=== PATIENT | female | born 1965 | race Two or more races ===

== ENCOUNTER 2024-05-15 14:31 | Inpatient (IN) | payer OTHER, MEDICAID ==
[~2024-05-15] VITALS: Ht 160 cm; Wt 66.4 kg
[2024-05-15 15:20] VITALS: PULSE 100
[2024-05-15] MEDS: SODIUM CHLORIDE 0.9% 1,000 ML IV ONE (15:36)
[2024-05-15 16:08] LABS: Basophils # (auto) 0 10 ^3/uL (0-0.2); Basophils % (auto) 0.4 % (0.0-2.0); Eosinophils # (auto) 0.3 10 ^3/uL (0-0.8); Eosinophils % (auto) 1.9 % (0.0-7.0); Hematocrit 27.4 % (36.0-46.0); Hemoglobin 8.5 g/dL (12.2-16.2); Lymphocytes # (auto) 1.6 10 ^3/uL (0.4-5.4); Lymphocytes % (auto) 12.6 % (10.0-50.0); Mean Corpuscular Hemoglobin 28.3 pg (28.0-32.0); Mean Corpuscular Hgb Conc. 31.1 g/dL (32.0-36.0); Mean Corpuscular Volume 90.9 fL (80.0-100.0); Monocytes # (auto) 0.8 10 ^3/uL (0-1.3); Monocytes % (auto) 5.9 % (0.0-12.0); Neutrophils # (auto) 10.3 10 ^3/uL (1.6-8.6); Neutrophils % (auto) 79.2 % (37.0-80.0); Nucleated Red Blood Cells % 0.1 %; Red Blood Cells 3.01 10^6/uL (4.0-5.20); Red Cell Distribution Width 14.2 % (11.8-14.3)
[2024-05-15 16:41] LABS: Alanine Aminotransferase 13 U/L (7-40); Albumin 3.4 g/dL (3.2-4.8); Alkaline Phosphatase 115 U/L (46-116); Anion Gap 10 (5-15); Aspartate Aminotransferase 19 U/L (13-40); BUN/Creatinine Ratio 40.6 (10.0-20.0); Blood Urea Nitrogen 78 mg/dL (9-23); Calcium 8.5 mg/dL (8.7-10.4); Carbon Dioxide 25 mmol/L (20-30); Chloride 109 mmol/L (98-107); Glucose 111 mg/dL (74-106); Potassium 4.1 mmol/L (3.5-5.1); Sodium 144 mmol/L (136-145)
[2024-05-15 16:42] LABS: Bilirubin, Total 0.2 mg/dL (0.2-1.0); Total Protein 5.2 g/dL (5.7-8.2)
[2024-05-15] MEDS ORDERED: NITROGLYCERIN 0.4 MG SL TAB SL PRN ×2 (18:00→18:15)
[2024-05-15] MEDS ORDERED: MORPHINE SULFATE INJ 2 MG/ml SYRG IV PRN ×3 (18:00→18:15)
[2024-05-15] MEDS ORDERED: ONDANSETRON HCL 4 MG/2 ML VIAL IV PRN (18:15)
[2024-05-15] MEDS ORDERED: DOCUSATE SOD 100 MG CAP PO PRN (18:15)
[2024-05-15 18:35] VITALS: BP 132/76; PULSE 105; RESP 18; TEMP 98.1; O2SAT 100
[2024-05-15 19:17] VITALS: PULSE 105; RESP 18; O2SAT 100
[2024-05-15] MEDS: SODIUM CHLORIDE 0.9% 1,000 ML IV SCH (20:25)
[2024-05-15] MEDS: PANTOPRAZOLE 40 MG/10 ML VIAL INJ IV ONE (20:25)
[2024-05-15] MEDS: cefTRIAXone 1GM/50ML D5W 50 ML IV ONE (20:26)
[2024-05-15 21:00] VITALS: BP 118/70; PULSE 104; RESP 18; TEMP 98.5; O2SAT 99
[2024-05-15] MEDS: PANTOPRAZOLE 40 MG/10 ML VIAL INJ IV SCH (21:28)
[2024-05-15 22:22] VITALS: BP 117/75; PULSE 114; RESP 18; TEMP 97.8
[2024-05-15 22:40] VITALS: BP 140/72; PULSE 103; RESP 18; TEMP 98.4
[2024-05-15] MEDS ORDERED: ALBUAER3 IN (23:34)
[2024-05-15] MEDS ORDERED: ACET325T82 PO (23:34)
[2024-05-15] MEDS ORDERED: DOCU-94 PO (23:50)
[2024-05-15] MEDS ORDERED: CYAN100069 SL (23:50)
[2024-05-15] MEDS ORDERED: METO25TA93 PO (23:50)
[2024-05-15] MEDS ORDERED: LEVO137T3 PO (23:50)
[2024-05-15] MEDS ORDERED: VERA120T92 PO (23:50)
[2024-05-15] MEDS ORDERED: ALEN70TA74 PO (23:50)
[2024-05-15] MEDS ORDERED: ATOR10TA52 PO (23:50)
[2024-05-15] MEDS ORDERED: OXCA600T3 PO (23:50)
[2024-05-15] MEDS ORDERED: BENA20TA12 PO (23:50)
[2024-05-15] MEDS ORDERED: LORA-1121 PO (23:50)
[2024-05-15] MEDS ORDERED: BUPR-133 PO ×2 (23:50)
[2024-05-15] MEDS ORDERED: TRAM50TA2 PO (23:50)
[2024-05-16] VITALS (8 sets, daily range): BP systolic 107–150; BP diastolic 43–86; PULSE 78–98; RESP 15–18; TEMP 97.6–99.3; O2SAT 95–99
[2024-05-16 04:16] LABS: Basophils # (auto) 0.1 10 ^3/uL (0-0.2); Basophils % (auto) 0.9 % (0.0-2.0); Eosinophils # (auto) 0.2 10 ^3/uL (0-0.8); Eosinophils % (auto) 1.3 % (0.0-7.0); Hematocrit 26.9 % (36.0-46.0); Hemoglobin 8.9 g/dL (12.2-16.2); Lymphocytes # (auto) 2.9 10 ^3/uL (0.4-5.4); Lymphocytes % (auto) 25.3 % (10.0-50.0); Mean Corpuscular Hgb Conc. 33.1 g/dL (32.0-36.0); Mean Corpuscular Volume 87.4 fL (80.0-100.0); Monocytes # (auto) 0.7 10 ^3/uL (0-1.3); Monocytes % (auto) 6.3 % (0.0-12.0); Neutrophils # (auto) 7.6 10 ^3/uL (1.6-8.6); Neutrophils % (auto) 66.2 % (37.0-80.0); Red Blood Cells 3.08 10^6/uL (4.0-5.20); Red Cell Distribution Width 13.8 % (11.8-14.3); White Blood Cell 11.5 10^3/uL (4.4-10.8)
[2024-05-16] MEDS: LORazepam 2MG/ML-1ML VIAL IV PRN (04:18)
[2024-05-16 04:33] LABS: Alanine Aminotransferase 15 U/L (7-40); Albumin 3.5 g/dL (3.2-4.8); Alkaline Phosphatase 104 U/L (46-116); Anion Gap 8 (5-15); Aspartate Aminotransferase 9 U/L (13-40); BUN/Creatinine Ratio 33.7 (10.0-20.0); Bilirubin, Total 0.3 mg/dL (0.2-1.0); Calcium 8.9 mg/dL (8.7-10.4); Carbon Dioxide 24 mmol/L (20-30); Chloride 113 mmol/L (98-107); Glucose 90 mg/dL (74-106); Potassium 4.3 mmol/L (3.5-5.1); Sodium 145 mmol/L (136-145); Total Protein 5.6 g/dL (5.7-8.2)
[2024-05-16 04:35] LABS: Blood Urea Nitrogen 61 mg/dL (9-23)
[2024-05-16 06:52] LABS: Hematocrit 25.4 % (36.0-46.0); Hemoglobin 8.6 g/dL (12.2-16.2)
[2024-05-16] MEDS: cefTRIAXone 1GM/50ML D5W 50 ML IV SCH (09:13)
[2024-05-16 12:19] LABS: Hematocrit 23.5 % (36.0-46.0); Hemoglobin 7.9 g/dL (12.2-16.2)
[2024-05-16 19:30] LABS: Hematocrit 23.6 % (36.0-46.0); Hemoglobin 7.9 g/dL (12.2-16.2)
[2024-05-17] VITALS (10 sets, daily range): BP systolic 121–164; BP diastolic 70–85; PULSE 66–86; RESP 11–18; TEMP 97.2–98.8; O2SAT 96–99
[2024-05-17 09:06] LABS: INR 1.02 (0.9-1.15); Prothrombin Time 10.8 sec (9.3-11.8)
[2024-05-17 10:04] LABS: Chloride 116 mmol/L (98-107); Sodium 147 mmol/L (136-145)
[2024-05-17 10:05] LABS: Anion Gap 13 (5-15); Carbon Dioxide 18 mmol/L (20-30)
[2024-05-17 10:06] LABS: Calcium 8.7 mg/dL (8.7-10.4)
[2024-05-17 10:10] LABS: BUN/Creatinine Ratio 25.3 (10.0-20.0); Glucose 72 mg/dL (74-106)
[2024-05-17 10:11] LABS: Blood Urea Nitrogen 39 mg/dL (9-23)
[2024-05-17] MEDS: LIDOCAINE W/ EPINEPHRINE 1% 20ML VIAL ONE (14:19)
[2024-05-17] MEDS: D5W/SOD CHL 0.45% 1,000 ML IV SCH (15:45)
[2024-05-17] MEDS ORDERED: MIDAZOLAM HCL 2MG/2ML 2ml VIAL (1mg/ml) ONE (16:56)
[2024-05-17] MEDS ORDERED: PROPOFOL 10 MG/ML 20 ML IV ONE (17:39)
[2024-05-17] MEDS: SUCRALFATE 1 GM/10 ML ORAL SUSP PO SCH (22:02)
[2024-05-18 01:00] VITALS: BP 130/86; PULSE 80; RESP 20; TEMP 98.1; O2SAT 94
[2024-05-18 05:00] VITALS: BP 126/73; PULSE 65; RESP 20; TEMP 97.8; O2SAT 96
[2024-05-18] MEDS: buPROPion HCL 75 MG TAB PO ONE (05:19)
[2024-05-18] MEDS: PANTOPRAZOLE 40 MG TAB PO SCH (05:19)
[2024-05-18 07:31] LABS: Calcium 9.4 mg/dL (8.7-10.4); Chloride 112 mmol/L (98-107); Potassium 3.8 mmol/L (3.5-5.1); Sodium 142 mmol/L (136-145)
[2024-05-18 07:32] LABS: Anion Gap 8 (5-15); Carbon Dioxide 22 mmol/L (20-30)
[2024-05-18 07:37] LABS: Glucose 90 mg/dL (74-106)
[2024-05-18 07:38] LABS: BUN/Creatinine Ratio 18.3 (10.0-20.0)
[2024-05-18 07:45] LABS: Blood Urea Nitrogen 28 mg/dL (9-23)
[2024-05-18] MEDS ORDERED: ACETAMINOPHEN 325 MG TAB PO PRN (07:45)
[2024-05-18 07:46] LABS: Basophils # (auto) 0.1 10 ^3/uL (0-0.2); Eosinophils # (auto) 0.3 10 ^3/uL (0-0.8); Hemoglobin 8.4 g/dL (12.2-16.2); Monocytes # (auto) 0.6 10 ^3/uL (0-1.3); Neutrophils # (auto) 7.8 10 ^3/uL (1.6-8.6); Red Cell Distribution Width 14.1 % (11.8-14.3)
[2024-05-18 07:49] LABS: Basophils % (auto) 0.8 % (0.0-2.0); Eosinophils % (auto) 3.1 % (0.0-7.0); Hematocrit 24.7 % (36.0-46.0); Lymphocytes # (auto) 2.5 10 ^3/uL (0.4-5.4); Mean Corpuscular Hemoglobin 30.5 pg (28.0-32.0); Mean Corpuscular Volume 89.7 fL (80.0-100.0); Monocytes % (auto) 5.2 % (0.0-12.0); Neutrophils % (auto) 68.9 % (37.0-80.0); Nucleated Red Blood Cells % 0.2 %; Red Blood Cells 2.76 10^6/uL (4.0-5.20); White Blood Cell 11.3 10^3/uL (4.4-10.8)
[2024-05-18 08:00] VITALS: PULSE 77; O2SAT 96
[2024-05-18 09:00] VITALS: BP 184/108; PULSE 82; RESP 18; TEMP 98.4; O2SAT 99
[2024-05-18] MEDS: DOCUSATE SOD 100 MG CAP PO SCH (09:37)
[2024-05-18] MEDS: VERAPAMIL HCL 120 mg ER tab PO SCH (09:37)
[2024-05-18 09:45] LABS: Hepatitis B Surface Antigen Negative (Negative)
[2024-05-18] MEDS ORDERED: ALBUTEROL SULF HFA 90MCG INH 200DOSE IN SCH (10:00)
[2024-05-18 10:06] LABS: Hepatitis C Antibody Negative (Negative)
[2024-05-18] MEDS ORDERED: SUCR1TAB31 PO (11:41)
[2024-05-18] MEDS ORDERED: PANT40TA2 PO (11:41)
[2024-05-18] MEDS ORDERED: SUCR1SUS26 PO (12:31)
[2024-05-18 13:00] VITALS: BP 132/77; PULSE 64; RESP 18; TEMP 98; O2SAT 94
[2024-05-18 14:39] VITALS: BP 142/84; PULSE 85; RESP 20; TEMP 98.3; O2SAT 98
[2024-05-18] MEDS ORDERED: buPROPion HCL 100 MG TAB PO SCH (22:00)
[2024-05-18] MEDS ORDERED: ATORVASTATIN 20 MG TAB PO SCH (22:00)
[2024-05-18] MEDS ORDERED: OXcarbazepine 300 MG TAB PO SCH (22:00)
[2024-05-19] MEDS ORDERED: HYDROCHLOROTHIAZIDE PO SCH (10:00)
[2024-05-19] MEDS ORDERED: ALENDRONATE SODIUM 70 MG PO SCH (10:00)
[2024-05-19] MEDS ORDERED: LEVOTHYROXINE SODIUM 112 MCG TAB PO SCH (10:00)
[2024-05-19] MEDS ORDERED: BENAZEPRIL PO SCH (10:00)
[2024-05-19] MEDS ORDERED: METOPROLOL SUCCINATE XL 50 MG TAB PO SCH (10:00)
[2024-05-19] MEDS ORDERED: LEVOTHYROXINE SODIUM 25 MCG TAB PO SCH (10:00)
[2024-05-19] MEDS ORDERED: ATORVASTATIN 20 MG TAB PO SCH (10:00)
== END 2024-05-18 16:00 | disposition home or self-care (01) | DRG 377 ==
LOC: EDBD 14:31 → ER 14:31 → OVERFLOW 18:14 → CENTRAL 18:48
PROVIDERS: ADMIT Nurse Practitioner Family; ATTEND Internal Medicine
PROC: 30233N1 Transfusion of Nonautologous Red Blood Cells into Peripheral Vein, Percutaneous Approach (ICD-10-PCS; 2024-05-15)
PROC: 0DB68ZX Excision of Stomach, Via Natural or Artificial Opening Endoscopic, Diagnostic (ICD-10-PCS; principal; 2024-05-17 16:50)
DX: K28.4 Chronic or unspecified gastrojejunal ulcer with hemorrhage (principal); N17.0 Acute kidney failure with tubular necrosis; D62 Acute posthemorrhagic anemia; E87.0 Hyperosmolality and hypernatremia; I12.9 Hypertensive chronic kidney disease with stage 1 through stage 4 chronic kidney disease, or unspecified chronic kidney disease; D72.829 Elevated white blood cell count, unspecified; E11.22 Type 2 diabetes mellitus with diabetic chronic kidney disease; E11.65 Type 2 diabetes mellitus with hyperglycemia; E78.5 Hyperlipidemia, unspecified; F31.9 Bipolar disorder, unspecified; N18.32 Chronic kidney disease, stage 3b; F50.9 Eating disorder, unspecified; Z90.5 Acquired absence of kidney; Z91.030 Bee allergy status; Z88.0 Allergy status to penicillin; Z91.09 Other allergy status, other than to drugs and biological substances; Z79.899 Other long term (current) drug therapy; Z81.8 Family history of other mental and behavioral disorders; Z82.49 Family history of ischemic heart disease and other diseases of the circulatory system; Z85.528 Personal history of other malignant neoplasm of kidney; Z86.59 Personal history of other mental and behavioral disorders; Z98.84 Bariatric surgery status
CPT/HCPCS: 36415; 74176; 80048; 80053; 82607; 83605; 84484; 85014; 85018; 85025; 85610; 86803; 86850; 86900; 86901; 86920; 87340; 93005; 96360; G0378; J2250; J2470; J2704

== ENCOUNTER 2024-07-21 15:58 | Emergency (ER) | payer OTHER, MEDICAID ==
[~2024-07-21] VITALS: Ht 160 cm; Wt 62.9 kg
[~2024-07-21 15:58] MED LIST: ACET325T82 PO; ALBUAER3 IN; ALEN70TA74 PO; ATOR10TA52 PO; BENA20TA12 PO; BUPR-133 PO; CYAN100069 SL; DOCU-94 PO; LEVO137T3 PO; LORA-1121 PO; METO25TA93 PO; OXCA600T3 PO; PANT40TA2 PO; SUCR1SUS26 PO; TRAM50TA2 PO; VERA120T92 PO
[2024-07-21 17:54] LABS: Basophils # (auto) 0.1 10 ^3/uL (0-0.2); Basophils % (auto) 0.9 % (0.0-2.0); Eosinophils # (auto) 0.1 10 ^3/uL (0-0.8); Hematocrit 32.4 % (36.0-46.0); Hemoglobin 10.7 g/dL (12.2-16.2); Lymphocytes # (auto) 1.2 10 ^3/uL (0.4-5.4); Lymphocytes % (auto) 11.8 % (10.0-50.0); Mean Corpuscular Hemoglobin 29.3 pg (28.0-32.0); Mean Corpuscular Volume 88.9 fL (80.0-100.0); Monocytes # (auto) 0.7 10 ^3/uL (0-1.3); Monocytes % (auto) 7.2 % (0.0-12.0); Neutrophils # (auto) 7.8 10 ^3/uL (1.6-8.6); Neutrophils % (auto) 79.1 % (37.0-80.0); Platelet Count (auto) 268 10^3/uL (140-450); Red Blood Cells 3.65 10^6/uL (4.0-5.20); Red Cell Distribution Width 15.4 % (11.8-14.3); White Blood Cell 9.8 10^3/uL (4.4-10.8)
[2024-07-21 18:08] LABS: Alanine Aminotransferase 14 U/L (7-40); Albumin 4.2 g/dL (3.2-4.8); Alkaline Phosphatase 191 U/L (46-116); Anion Gap 10 (5-15); Aspartate Aminotransferase 10 U/L (13-40); BUN/Creatinine Ratio 18.6 (10.0-20.0); Bilirubin, Total 0.2 mg/dL (0.2-1.0); Blood Urea Nitrogen 39 mg/dL (9-23); Calcium 9.3 mg/dL (8.7-10.4); Carbon Dioxide 26 mmol/L (20-30); Chloride 106 mmol/L (98-107); Glucose 81 mg/dL (74-106); Potassium 3.8 mmol/L (3.5-5.1); Sodium 142 mmol/L (136-145); Total Protein 7.1 g/dL (5.7-8.2)
[2024-07-21] MEDS ORDERED: BACDST PO (19:59)
[2024-07-21 20:50] VITALS: BP 107/71; PULSE 97; RESP 16; TEMP 98.5; O2SAT 97
== END 2024-07-21 20:55 | disposition home or self-care (01) ==
LOC: ER 15:58
DX: L03.116 Cellulitis of left lower limb (principal); I10 Essential (primary) hypertension; E78.5 Hyperlipidemia, unspecified; F32.A Depression, unspecified; Z79.899 Other long term (current) drug therapy
CPT/HCPCS: 36415; 73630; 80053; 85025

== ENCOUNTER 2025-01-24 00:31 | Emergency (ER) | payer OTHER, MEDICAID ==
[~2025-01-24] VITALS: Ht 160 cm; Wt 75.6 kg
[~2025-01-24 00:31] MED LIST changes: +BACDST PO
--- NOTE | 2025-01-24 00:44 | ED.PDOC ---
[place]. trauma (HPI) HPI Comments 59 year old female came to ER for fall injury. Patient had a ground level fall earlier and landed badly on her left shoulder, left knee and right wrist. Denies any head trauma or loss of consciousness. Patient does complain of a abrasion to the left knee. No active blood loss. Patient denies any head trauma. Patie nt is able to ambulate. Chief Complaint: Fall Injury Time Seen by MD: 00:43 Primary Care Provider: BERNARDINO Garrett notes: Nurses Notes Allergies: Coded Allergies: Latex (Verified Allergy, Unknown, 01/24/25) Uncoded Allergies: BEE STING (Allergy, Intermediate, 05/15/24) ITCHY PLASTIC TAPE (Allergy, Mild, ITCHY, 05/15/24) PCN (Allergy, Unknown, 05/15/24) PCN, BEE STINGS, AND PLASTIC TAPE. (Allergy, Unknown, 05/15/24) Home Meds Active Scripts Acetaminophen (Acetaminophen) 500 Mg Tab, 500 MG PO Q4HP PRN, #30 TAB Prov:GERA DELUCA PAC 01/24/25 Ibuprofen Micronized (Ibuprofen) 800 Mg Tab, 800 MG PO Q8HP PRN, #20 TAB Prov:GERA DELUCA PAC 01/24/25 Bacitracin Base (Bacitracin) 500 Unit/Gm Oin, 500 UNIT TOP DAILY, #30 GM Prov:GERA DELUCA PAC 01/24/25 Sulfamethoxazole W/Trimethopri (Bactrim Ds Tablet) 1 Tab Tb, 1 TAB PO BID for 10 Days, #20 TAB Prov:JERSON [place] 07/21/24 Sucralfate (CARAFATE SUSP) 1 Gm/10 Ml Ss, 10 ML PO QID, #1200 ML 3 Refills Prov:SUHAIL GILMORE MD 05/18/24 Pantoprazole Sodium Sesquihydr (Protonix) 40 Mg Tab, 40 MG PO BID, #60 TAB 5 Refills Prov:SUHAIL GILMORE MD 05/18/24 Reported Medications Tramadol Hcl (Tramadol Hcl) 50 Mg Tab, 50 MG PO, TAB 05/15/24 Oxcarbazepine (Trileptal) 600 Mg Tab, 1 TAB PO BID, #60 TAB 1 Refill 05/15/24 Metoprolol Succinate (Metoprolol Succinate Er) 25 Mg Tab, 1 TAB PO DAILY, #30 TAB 5 Refills 05/15/24 Lorazepam (ATIVAN TABLET) 0.5 Mg Tb, 1 TAB PO DAILY, #30 TAB 05/15/24 Levothyroxine Sodium (Levothyroxine Sodium) 137 Mcg Tab, 1 TAB PO DAILY, #30 TAB 5 Refills 05/15/24 Docusate Sodium (Colace) 100 Mg Cap, 1 CAP PO BID, #30 CAP 05/15/24 Verapamil Hcl (Verapamil Hcl Er) 120 Mg Tab, 1 TAB PO DAILY, #30 TAB 5 Refills 05/15/24 Cyanocobalamin (B-12) 1,000 Mcg Sub, 1000 MCG SL, INJ 05/15/24 Bupropion Hcl (Bupropion Hcl Er) 150 Mg Tab, 1 TAB PO BID, #60 TAB 5 Refills 05/15/24 Benazepril & Hydrochlorothiazi (Benazepril Hcl/Hydrochlor) 1 Tab Tab, 1 TAB PO D AILY, #30 TAB 5 Refills 05/15/24 Atorvastatin Calcium (ATORVASTATIN CALCIUM) 10 Mg Tab, 1 TAB PO DAILY, #30 TAB 5 Refills 05/15/24 Alendronate Sodium (Alendronate Sodium) 70 Mg Tab, 1 TAB PO QWEEKLY, #4 TAB 3 Refills 05/15/24 Albuterol Sulfate (VENTOLIN MDI) 90 Mcg Ih, 90 MCG IN, INH 05/15/24 Acetaminophen (Apap) 325 Mg Tab, 1 TAB PO DAILY PRN for BREAKTHROUGH PAIN, #30 TAB 05/15/24 Information Source: Patient Mode of Arrival: Ambulatory Severity: Moderate Timing: Hours Duration: Since onset Prehospital treatment: None Location: (L) Knee, (L) Shoulder, (R) Wrist Mechanism: Fall Past Medical History PAST MEDICAL HISTORY: Depression, High Lipids, HTN Past Medical History (Other): Bipolar disorder Surgical History: Denies all surgeries [employer] History: Denies all [employer] Hx Family History Family History: Reviewed,noncontributory to illness Social History Smoker: Non-Smoker Alcohol: Denies ETOH Use Drugs: Denies Drug Use Lives In: Home Constitutional: denies: chills, diaphoresis, fatigue, fever, malaise, sweats, weakness, others EENTM: denies: blurred vision, double vision, ear bleeding, ear discharge, ear drainage, ear pain, ear ringing, eye pain, eye redness, hearing loss, mouth pain, mouth swelling, nasal discharge, nose bleeding, nose congestion, nose pain, photophobia, tearing, throat pain, throat swelling, voice changes, others Respiratory: denies: cough, hemoptysis, orthopnea, SOB at rest, shortness of breath, SOB with excertion, stridor, wheezing, others Cardiovascular: denies: chest pain, dizzy spells, diaphoresis, Dyspnea on exertion, edema, irregular heart beat, left arm pain, lightheadedness, palpitations, PND, syncope, others Gastrointestinal: denies: abdomen distended, abdominal pain, blood streaked bowels, constipated, diarrhea, dysphagia, difficulty swallowing, hematemesis, melena, nausea, poor appetite, poor fluid intake, rectal bleeding, rectal pain, vomiting, others Genitourinary: denies: abnormal vagina bleeding, burning, dyspareunia, dysuria, flank pain, frequency, hematuria, incontinence, pain, , vagina dis charge, urgency, others Neurological: denies: dizziness, fainting, headache, left sided numbness, left sided weakness, numbness, paresthesia, pre-existing deficit, right sided numbness, right sided weakness, seizure, speech problems, tingling, tremors, weakness, others Musculoskeletal: reports: joint pain (left shoulder, left knee, right wrist); denies: back pain, gout, joint swelling, muscle pain, muscle stiffness, neck pain, others Integumetry: reports: wounds (Abrasion to left knee); denies: bruises, change in color, change in hair/nails, dryness, laceration, lesions, lumps, rash, others Allergic/Immunocompromised: denies: Difficulty Healing, Frequent Infections, Hives, Itching, others Hematologic/Lymphatic: denies: anemia, blood clots, easy bleeding, easy bruising, swollen glands, others Endocrine: denies: excessive hunger, excessive sweating, excessive thirst, excessive urination, flushing, intolerance to cold, intolerance to heat, unexplained weight gain, unexplained weight loss, others Psychiatric: reports: bipolar disorder; denies: anxiety, depression, hopeless, panic disorder, schizophrenia, sleepless, suicidal, others Physical Exam General Appearance: Moderate Distress ( [id number] distress due to shoulder, wrist and knee pain.), Obese HEENT: Normal ENT Inspection, Pharynx Normal, TMs Normal Neck: Full Range of Motion, Non-Tender, Normal, Normal Inspection Respiratory: Chest Non-Tender, Lungs Clear, No Accessory Muscle Use, No Respiratory Distress, Normal Breath Sounds Cardiovascular: No Edema, No JVD, No Murmur, No Gallop, Normal Peripheral Pulses, Regular Rate/Rhythm Breast Exam: Deferred Gastrointestinal: No Organomegaly, Non Tender, No Pulsatile Mass, Normal Bowel Sounds, Soft Genitalia: Deferred Pelvic: Deferred Rectal: Deferred Extremities: Other ( Diffuse left arm tenderness to palpation throughout. No deformities noted. Moderate reduced range of motion. Distal neurovascular intact. Right wrist is tender to palpation throughout the dorsal aspect. Minimal edema noted. No erythema or ecchymosis noted. Small abrasion noted to tibial tuberosity region of the left knee. Patient has a bandage. No edema or ecchymosis. Mild reduced range of motion.) Musculoskeletal : Apperance: Normal Neurologic: Alert, No Motor Deficits, Normal Affect, Normal Mood, No Sensory Deficits Cerebellar Function: Normal Reflexes: Normal Skin: Dry, Normal Color, Warm Lymphatic: No Adenopathy Was a procedure done? Was a procedure done?: No Differential Diagnosis Multiple Trauma: Fractures, Abrasions, Contusion, Laceration X-Ray, Labs, Meds, VS Vital Signs Date Time Temp Pulse Resp B/P (MAP) Pulse Ox O2 Delivery O2 Flow Rate FiO2 3//25 00:37 98.0 84 16 159/94 (115) 97 98.0 X-Ray, Labs, Meds, VS Comment All studies performed in the ED were evaluated by me personally. Right wrist x- ray was unremarkable for any acute fractures or dislocations. Left clavicle was unremarkable, but there was a moderately displaced fracture of the humeral head and surgical neck. Patient will be provided with a splint and has been advised to follow up with primary care provider in the next few days for re-evaluation. If patient has difficulties following up, patient can contact this facility and talked to Dr. Salter's orthopedic department. Time of 1ST Reevaluation: 01:37 Reevaluation 1ST: Improved Consultation: PCP Patient Education/Counseling: Diagnosis, Treatment Family Education/Counseling: Diagnosis, Treatment, No Family Present Departure 1 Departure Time of Disposition: 01:32 Impression: Primary Impression: Humeral head fracture Additional Impressions: Wrist sprain Knee contusion Disposition: HOME / SELF CARE / HOMELESS Condition: Stable Additional Instructions: Advised patient utilize pain medication as needed for symptomatic relief as well as ice therapy. Topical antibiotics daily for the next few days. Patient should follow up with the primary care provider in the next few days for discussions related to her humeral fracture. If patient is unable to follow up with her primary care provider, patient should contact this facility at [phone] Salter's orthopedic department. e-Prescriptions Ibuprofen Micronized (Ibuprofen) 800 Mg Tab 800 MG PO Q8HP PRN, #20 TAB Prov: GERA DELUCA PAC 01/24/25 Bacitracin Base (Bacitracin) 500 Unit/Gm Oin 500 UNIT TOP DAILY, #30 GM Prov: GERA DELUCA PAC 01/24/25 Discharged With: Self, Friend Critical Care Note Critical Care Time?: No Stability Stability form required: No Heart Score Heart Score: Heart Score Response (Comments) Value History N/A 0 EKG N/A 0 Age N/A 0 Risk Factors N/A 0 Troponin N/A 0 Total 0 I personally scribed for GERA DELUCA PAC ([email or web address]) on 01/24/25 at 00:44. Electronically submitted by Young Martinez ([facility] GERA DELUCA PAC Jan 24, 2025 00:44
[2025-01-24 01:10] VITALS: BP 154/93; PULSE 79; RESP 14; TEMP 98.5; O2SAT 93
--- NOTE | 2025-01-24 01:16 | DVH ---
CLINICAL INDICATION: Trauma/fall TECHNIQUE: XY R WRIST 3+ VIEW XRAY Comparison: None FINDINGS/IMPRESSION: : There is no evidence of acute fracture or dislocation. Soft tissues are unremarkable.
--- NOTE | 2025-01-24 01:26 | DVH ---
CLINICAL INDICATION: Trauma/fall TECHNIQUE: XY L HUMERUS XRAY Comparison: None FINDINGS/IMPRESSION: : Moderately displaced fracture of the humeral head and surgical humeral neck. No other fractures are identified. Moderate degenerative changes are present within the glenohumeral and acromioclavicular joints. Soft tissue elements are normal in appearance. Visualized portions of the left lung are clear.
--- NOTE | 2025-01-24 01:27 | DVH ---
CLINICAL INDICATION: Trauma/fall TECHNIQUE: XY L CLAVICLE COMPLETE XRAY Comparison: None FINDINGS/IMPRESSION: : Moderately displaced fracture of the humeral head and surgical neck. No other fractures are identified. Moderate degenerative changes of the glenohumeral and acromioclav icular joints noted. Soft tissue elements are normal in appearance. The visualized portions of the left lung are clear.
[2025-01-24] MEDS ORDERED: BACIOIN15 TOP (01:34)
[2025-01-24] MEDS ORDERED: IBUP-1455 PO (01:34)
[2025-01-24] MEDS ORDERED: ACET500T58 PO (01:34)
[2025-01-24] MEDS ORDERED: HYDR-4798 PO (01:42)
[2025-01-24] MEDS: KETOROLAC TROMETH 60MG/2ML VIAL IM ONE (02:12)
[2025-01-24] MEDS: TETANUS-DIPTH-ACEL PERTUSSIS 0.5ML SYR Tdap IM ONE (02:12)
[2025-01-24] MEDS: HYDROcodone-ACET 10/325MG TAB PO ONE (02:13)
== END 2025-01-24 02:59 | disposition home or self-care (01) ==
LOC: ER 00:31
DX: S42.292A Other displaced fracture of upper end of left humerus, initial encounter for closed fracture (principal); S63.591A Other specified sprain of right wrist, initial encounter; S80.02XA Contusion of left knee, initial encounter; I10 Essential (primary) hypertension; F31.9 Bipolar disorder, unspecified; Z79.899 Other long term (current) drug therapy; Z91.030 Bee allergy status; Z88.8 Allergy status to other drugs, medicaments and biological substances; W18.39XA Other fall on same level, initial encounter; Y93.89 Activity, other specified; Y92.89 Other specified places as the place of occurrence of the external cause; Y99.8 Other external cause status
CPT/HCPCS: 29105; 73000; 73060; 73110; 90471; 90715; 96372; 99284; J1885